=== PATIENT | male | born 1985 | race Caucasian/White ===

== ENCOUNTER 2016-08-28 21:38 | Emergency (ER) | payer OTHER ==
[2016-08-28 21:50] VITALS: BP 142/63; PULSE 86; RESP 18; TEMP 97.3
[2016-08-28] MEDS ORDERED: KETOROLAC 60 MG/2 ML VIAL IM STA (22:01)
[2016-08-28] MEDS ORDERED: HYDROcodone/APAP 5-325MG 1 EACH TAB PO STA (22:09)
--- NOTE | 2016-08-28 22:21 | ED ---
General Adult HPI - General Chief complaint: Extremity Injury, Upper Stated complaint: Arm Pain Time Seen by Provider: 08/28/16 21:52 Source: patient, RN notes reviewed Mode of arrival: ambulatory Limitations: no limitations - History of Present Illness Initial comments: This is a 30-year-old male presents with right shoulder pain. Patient states this has been going on for a little over a week. Patient has already had x- rays and was told that he had a lesion to the humerus. Patient did not re- injure the shoulder but states the pain is unbearable after he ran out of his Kiowa. Patient states he is following up with his primary care physician tomorrow for his shoulder pain. Patient also states he is planning on following up with orthopedics, but was told by orthopedics that he had follow- up with his primary care physician first. Patient denies any numbness/weakness or tingling to the right upper extremity. Patient states the pain is the top portion of his shoulder. Patient states the pain is worse with lifting or bearing weight to the right upper extremity. Patient has also been taking ibuprofen for this pain. Patient denies any recent fever, chills, shortness breath, chest pain, abdominal pain, nausea/vomiting/diarrhea, back pain, hematuria, headache, or visual changes, or any other complaints. - Related Data Previous Rx's Medication Instructions Recorded Ibuprofen [Motrin] 800 mg PO Q6HR PRN #30 tab 08/24/16 HYDROcodone/APAP 5-325MG [Kiowa 1 tab PO Q6HR #8 tab 08/28/16 5-325] Allergies Allergy/AdvReac Type Severity Reaction Status Date / Time muscle relaxers AdvReac Restless Uncoded 08/28/16 21:51 legs/Drowsiness Review of Systems ROS Statement: Those systems with pertinent positive or pertinent negative responses have been documented in the HPI. ROS Other: All systems not noted in ROS Statement are negative. Past Medical History Additional Past Medical History / Comment(s): chronic pain History of Any Multi-Drug Resistant Organisms: None Reported Past Surgical History: No Surgical Hx Reported Past Psychological History: No Psychological Hx Reported Smoking Status: Light tobacco smoker Past Alcohol Use History: Occasional Past Drug Use History: None Reported General Exam - General Exam Comments Initial Comments: General: The patient is awake and alert, in no distress, and does not appear acutely ill. Neck: The neck is supple, there is no tenderness or JVD. Cardiovascular: There is a regular rate and rhythm. No murmur, rub or gallop is appreciated. Respiratory: Lungs are clear to auscultation, respirations are non-labored, breath sounds are equal. No wheezes, stridor, rales, or rhonchi. Musculoskeletal: Patient has range of motion with abduction and flexion of the right upper extremity to approximately 90 until there is pain. There is tenderness to palpation over the superior portion of the right shoulder. Positive empty can test. There is no pain with opposed external rotation of the right forearm. Strength is 5/5 and sensation intact. Radial pulses 2+ bilaterally. Capillary refill is normal at less than 2 seconds. Neurological: A&O x 3. CN II-XII intact, There are no obvious motor or sensory deficits. Coordination appears grossly intact. Speech is normal. Skin: Skin is warm and dry and no rashes or lesions are noted. Psychiatric: Normal mood and affect. Limitations: no limitations Course Vital Signs 08/28/16 21:48 Temperature 97.3 F L Pulse Rate 86 Respiratory 18 Rate Blood Pressure 142/63 O2 Sat by Pulse 99 Oximetry Medical Decision Making - Medical Decision Making This is a 30-year-old male presents with right shoulder pain. On physical exam patient has range of motion with abduction and flexion of the right upper extremity to approximately 90 until there is pain. There is tenderness to palpation over the superior portion of the right shoulder. Positive empty can test. There is no pain with opposed external rotation of the right forearm. Strength is 5/5 and sensation intact. Radial pulses 2+ bilaterally. Capillary refill is normal at less than 2 seconds. I reviewed x-rays taken on 08/22/2016 showing no acute process. Focal reduced area involving the head of the humerus. Correlate with bone scan to assess for intraosseous lesion. Reports read by Dr. Yao. Patient expresses understanding to these results and states he is following up with his primary care physician and orthopedics as already planned. Patient states he just wanted pain medication get through the night as he is following up with his primary care physician tomorrow. Patient was given a dose of Kiowa in the [facility] today. I discussed with the patient that he will receive a short prescription for Kiowa until he can follow-up. Patient was given a new sling as his was broken. I discussed the use of [id number] ibuprofen and Tylenol as well. Discussed that patient should follow up with PCP tomorrow or return to the [facility] for any worsening symptoms or for any further concerns. Patient and were receptive to this plan and patient will be discharged home. Disposition Clinical Impression: Right shoulder pain Disposition: HOME SELF-CARE Condition: Good Instructions: Shoulder Pain (ED) Additional Instructions: Please continue to use sling for support. Please use Kiowa as prescribed. Please rest, ice, elevate and follow up with primary care physician as already scheduled for tomorrow. Please return to the [facility] for any worsening symptoms or for any further concerns. Prescriptions: HYDROcodone/APAP 5-325MG [Kiowa 5-325] 1 tab PO Q6HR #8 tab Referrals: Nonstaff,Physician [Primary Care Provider] - 1-2 days Time of Disposition: 22:27
== END 2016-08-28 22:33 | disposition home or self-care (01) ==
LOC: EC 21:38
DX: M25.511 Pain in right shoulder (principal); Z88.8 Allergy status to other drugs, medicaments and biological substances; F17.200 Nicotine dependence, unspecified, uncomplicated; G89.29 Other chronic pain
CPT/HCPCS: 99283